=== PATIENT | male | born 1970 ===

== ENCOUNTER → 2018-07-02 21:10 | Outpatient (REF) | payer OTHER, SELFPAY ==
[2018-07-02 22:20] LABS: Add Manual Diff / Slide Review NO; Basophils Absolute Auto 0 /uL (0-100); Basophils Percent Auto 0.5 % (0-2); Eosinophils Absolute Auto 100 /uL (0-450); Eosinophils Percent Auto 2.7 % (2-4); Hematocrit 43.8 % (36-46); Hemoglobin 14.6 g/dL (12.0-16.0); Lymphocytes Absolute Auto 2100 /uL (1100-4500); Mean Corpuscular HGB Conc 33.4 % (30-36); Mean Corpuscular Hemoglobin 29.2 PG (26-34); Mean Corpuscular Volume 87.4 fL (80-100); Monocytes Absolute Auto 200 /uL (0-900); Monocytes Percent Auto 4.4 % (3-14); Neutrophils Absolute Auto 2600 /uL (1500-7000); Neutrophils Percent Auto 50.4 % (50-75); Platelet Count 212 X10^3/uL (150-400); Red Blood Cell Count 5.02 X10^6/uL (4.0-5.2); Red Cell Distribution Width 13.6 % (11.6-14.8); White Blood Cell Count 5.1 X10^3/uL (4.5-11.0)
[2018-07-02 22:24] LABS: Alanine Aminotransferase 33 IU/L (9-52); Albumin 4.7 g/dL (3.5-5.0); Albumin Globulin Ratio 1.7 (1.0-2.8); Alkaline Phosphatase 49 U/L (38-126); Aspartate Aminotransferase 24 IU/L (14-36); BUN Creatinine Ratio 16.7 (6-22); Blood Urea Nitrogen 20 mg/dL (7-17); Carbon Dioxide 31 mmol/L (22-32); Chloride 100 mmol/L (98-107); Estimated Glomerular Filt Rate 48.2 mL/min (>60); Globulin 2.7 g/dL (1.7-4.1); Glucose 100 mg/dL (70-100); HEMOLYSIS < 15 (0-50); Potassium 4.5 mmol/L (3.4-5.1); Sodium 141 mmol/L (137-145); Total Protein 7.4 g/dL (6.3-8.2)
[2018-07-03 00:10] LABS: Free T3, Triiodothyronine Free 3.42 pg/mL (2.77-5.27); Free T4, Direct Thyroxine 1.54 ng/dL (0.78-2.19)
[2018-07-03 00:24] LABS: Thyroid Stimulating Hormone 1.29 uIU/mL (0.47-4.68)
[2018-07-05 22:02] LABS: Estradiol < 15 pg/mL
[2018-07-06 13:57] LABS: PSA Total 0.63 ng/mL (< 4.01)
[2018-07-11 15:40] LABS: Testosterone, Total 305
[2018-07-11 15:41] LABS: Testosterone,Free 13.9
[2018-07-11 15:42] LABS: Sex Hormone Binding Globulin 23.5
== END ==
LOC: LAB 21:10
PROVIDERS: Visit Provider Naturopath
DX: E29.1 Testicular hypofunction (principal); E06.3 Autoimmune thyroiditis; L29.9 Pruritus, unspecified
CPT/HCPCS: 36415; 80053; 82670; 84153; 84154; 84270; 84402; 84403; 84439; 84443; 84481; 85025

== ENCOUNTER → 2018-07-24 21:15 | Outpatient (REF) | payer OTHER, SELFPAY ==
[2018-07-24 22:07] LABS: Alanine Aminotransferase 43 IU/L (21-72); Albumin 4.7 g/dL (3.5-5.0); Albumin Globulin Ratio 1.8 (1.0-2.8); Alkaline Phosphatase 46 U/L (38-126); Aspartate Aminotransferase 26 IU/L (17-59); BUN Creatinine Ratio 17.3 (6-22); Bilirubin Total 0.9 mg/dL (0.2-1.3); Blood Urea Nitrogen 19 mg/dL (9-20); Calcium 9.4 mg/dL (8.4-10.2); Carbon Dioxide 30 mmol/L (22-32); Chloride 100 mmol/L (98-107); Estimated Glomerular Filt Rate > 60.0 mL/min (>60); Globulin 2.6 g/dL (1.7-4.1); Glucose 96 mg/dL (70-100); HEMOLYSIS < 15 (0-50); Potassium 4.1 mmol/L (3.4-5.1); Sodium 140 mmol/L (137-145); Total Protein 7.3 g/dL (6.3-8.2)
[2018-07-24 22:11] LABS: C-Reactive Protein Quant < 0.5 mg/dL (<1.0)
[2018-07-28 10:31] LABS: ANA Screen NEGATIVE (Negative); DNA Antibody Crithidia IFA NEGATIVE (Negative); Rheumatoid Factor <14 IU/mL; Sjogren Antiboday SS-A <1.0 NEG AI (<1.0 NEGATIVE); Sjogren Antiboday SS-B <1.0 NEG AI (<1.0 NEGATIVE); Sm Antibody <1.0 NEG AI (<1.0 NEGATIVE); Sm/RNP Antibody <1.0 NEG AI (<1.0 NEGATIVE)
== END ==
LOC: LAB 21:15
PROVIDERS: Visit Provider Naturopath
DX: L50.2 Urticaria due to cold and heat (principal); R94.4 Abnormal results of kidney function studies
CPT/HCPCS: 36415; 80053; 86038; 86140; 86430